=== PATIENT | male | born 1960 | race Caucasian/White ===

== ENCOUNTER → 2016-10-12 | Outpatient (CLI) | payer MEDICAID ==
--- NOTE | 2016-10-12 14:03 | ST MODIFIED BARIUM SWALLOW ---
SUBJECTIVE-DYSPHAGIA Date: 10/12/16 Time: 1300 Eval Type: Initial Certification - Admitted Date: Primary Diagnosis: Reason for Consult: DYSPHAGIA Pt/Caregiver Concerns: CHOKING Onset of symptoms- Symptoms have worsened? NO improved? NO resolved? NO since onset. Current Diet: REGULAR/THINS Allergies Coded Allergies: No Known Allergies (05/09/16) Is this assessment r/t stroke? No OBJECTIVE COMMUNICATION/COGNITION Barriers to communication/cog? No ORAL-MOTOR STRUCTURE/FUNCTION Structure/Function WFL: Labial, Buccal, Lingual, Velar, Mandibular. Facial Asymmetry None Laryngeal Function Strong: Voluntary Cough, Throat Clearing. Vocal Quality Normal Dentition Good dentition RESPIRATORY STATUS/HISTORY Is resp status/hx a concern? No DYSPHAGIA SIGNS W/CONSISTENCY Any S/S of Dysphagia? No VIDEO SWALLOW REPORT Radiologist: Justice JACKSON,Chip Dempsey Level of consciousness: Alert Position (degrees): 90 ORAL STAGE Consistencies used for study: Thin, Pudding, Mechanical Soft, Solid, Pill - WFL: Bolus Formation:, Initiation of Swallow:. - No: Gene.spilled into pharynx, Oral Residue. PHARYNGEAL STAGE Consistencies used for study: Thin, Pudding, Mechanical Soft, Solid, Pill Delayed Swallow Reflex? No Epiglottic Closure WFL Penetration-Laryngeal Vestibul No - Aspiration? No Pharyngeal Residue? No ASSESSMENT/PLAN ASSESSMENT Impression Mr. Abrams, a 56 year old male, was referred for a modified barium swallow by his physician. Mr. Abrams reports history of multiple occupational injuries from electrical shock and falls. Mr. Abrams reports choking on food, drinks, and own secretions. Mr. Abrmas was given the following consistencies: thins via straw and open cup, pudding, mechanical soft, regular, and pill with thin wash. No signs of dysphagia were noted. At this time, diet modifications or speech therapy is warranted. It was recommended that Mr. Abrams alternate between bite and sip. If problems continue, it is recommended Mr. Abrams be seen by audio visual engineer for gastrointestinal endoscopy. PLAN PATIENT/CAREGIVER EDUCATION Able-recall/restate what told? Yes Rehab Medicare G Code Plan Medicare/G Code eligible? No If pt's [facility] benefits exhausted If patient's Medicare benefits are exhausted, please review: #Min Spent: 35 at 1402
--- NOTE | 2016-10-12 14:03 | ST MODIFIED BARIUM SWALLOW ---
SUBJECTIVE-DYSPHAGIA Date: 10/12/16 Time: 1300 Eval Type: Initial Certification - Admitted Date: Primary Diagnosis: Reason for Consult: DYSPHAGIA Pt/Caregiver Concerns: [place]OKING Onset of symptoms- Symptoms have worsened? NO improved? NO resolved? NO since onset. Current Diet: REGULAR/THINS Allergies Coded Allergies: No Known Allergies (05/09/16) Is this assessment r/t stroke? No OBJECTIVE COMMUNICATION/COGNITION Barriers to communication/cog? No ORAL-MOTOR STRUCTURE/FUNCTION Structure/Function WFL: Labial, Buccal, Lingual, Velar, Mandibular. Facial Asymmetry None Laryngeal Function Strong: Voluntary Cough, Throat Clearing. Vocal Quality Normal Dentition Good dentition RESPIRATORY STATUS/HISTORY Is resp status/hx a concern? No DYSPHAGIA SIGNS W/CONSISTENCY Any S/S of Dysphagia? No VIDEO SWALLOW REPORT Radiologist: Justice JACKSON,Chip Dempsey Level of consciousness: Alert Position (degrees): 90 ORAL STAGE Consistencies used for study: Thin, Pudding, Mechanical Soft, Solid, Pill - WFL: Bolus Formation:, Initiation of Swallow:. - No: Gene.spilled into pharynx, Oral Residue. PHARYNGEAL STAGE Consistencies used for study: Thin, Pudding, Mechanical Soft, Solid, Pill Delayed Swallow Reflex? No Epiglottic Closure WFL Penetration-Laryngeal Vestibul No - Aspiration? No Pharyngeal Residue? No ASSESSMENT/PLAN ASSESSMENT Impression Mr. Abrams, a 56 year old male, was referred for a modified barium swallow by his physician. Mr. Abrams reports history of multiple occupational injuries from electrical shock and falls. Mr. Abrams reports choking on food, drinks, and own secretions. Mr. Abrams was given the following consistencies: thins via straw and open cup, pudding, mechanical soft, regular, and pill with thin wash. No signs of dysphagia were noted. At this time, diet modifications or speech therapy is warranted. It was recommended that Mr. Abrams alternate between bite and sip. If problems continue, it is recommended Mr. Abrams be seen by preschool program director for gastrointestinal endoscopy. PLAN PATIENT/CAREGIVER EDUCATION Able-recall/restate what told? Yes Rehab Medicare G Code Plan Medicare/G Code eligible? No If pt's [facility] benefits exhausted If patient's Medicare benefits are exhausted, please review: #Min Spent: 35 at 1402
--- NOTE | 2016-10-12 14:35 | RADIOLOGY REPORT PS360 ---
ESOPHAGUS W/CINERADIOGRAPHY: 10/12/2016 12:58 PM CLINICAL HISTORY: dysphagia, trouble swallowing, choking ORDERING PHYSICIAN: Murtaza Alberto MD PATIENT AGE: 56 years COMPARISON: None. TECHNIQUE: Patient administered varying consistencies of barium contrast, while viewed in lateral position under real-time fluoroscopy with cine recording. FLUOROSCOPY TIME: 2 minutes and 9 seconds The study was performed in conjunction with speech pathologist. Please see that report & recommendations. FINDINGS: Patient was given varying consistencies of barium. This consisted of thin via straw and open cup, pudding, mechanical soft, full, and barium tablet. No evidence of vestibular penetration or tracheal aspiration. No significant delay or stasis. There are mild hypertrophic changes of the cervical spine and ligamentous hypertrophy at C4-5 and C5-C6 causing mild indentation upon the esophagus IMPRESSION: Essentially negative modified barium swallow. Please see speech pathologist report and recommendations.
== END ==
LOC: RAD 12:57
DX: R13.10 Dysphagia, unspecified (principal)